=== PATIENT | male | born 1985 | race Caucasian/White ===

== ENCOUNTER 2021-06-23 19:04 | Emergency (ER) | payer MEDICAID ==
[2021-06-23 19:31] VITALS: BP 161/97; PULSE 114
--- NOTE | 2021-06-23 20:24 | EDM.PDOCBH ---
ED HPI GENERAL MEDICAL PROBLEM - General Chief Complaint: Drug or Alcohol Abuse Stated Complaint: ORLY GEORGE Time Seen by Provider: 06/23/21 19:50 Source of Information: Reports: Patient History Limitations: Reports: Intoxication - History of Present Illness INITIAL COMMENTS - FREE TEXT/NARRATIVE: 36-year-old male who has a chronic problem with binge drinking, has been dri nking too much lately and his and [id number] are insisting he go to detox. The patient himself does not seem to be real committed but I do get the feeling he would like some help. He has no nausea or vomiting, he has been drinking daily but does go periods of not drinking fairly often. History of seizures in the past which he was on medication but when he stopped drinking in the past he stopped the medications as well, no seizures since. Onset: Unknown/Unsure Associated Symptoms: Reports: No Other Symptoms - Related Data Allergies Allergy/AdvReac Type Severity Reaction Status Date / Time No Known Allergies Allergy Verified 06/23/21 19:57 Home Meds: Home Meds NK [No Known Home Meds] 06/23/21 [History] Past Medical History Neurological History: Reports: Seizure Psychiatric History: Reports: Addiction, Other (See Below) Other Psychiatric History: ETOH - Infectious Disease History Infectious Disease History: Reports: Chicken Pox Social & Family History - Tobacco Use Tobacco Use Status *Q: Never Tobacco User - Recreational Drug Use Recreational Drug Use: Yes Drug Use in Last 12 Months: Yes Recreational Drug Type: Reports: Marijuana/Hashish ED ROS GENERAL - Review of Systems Review Of Systems: See Below Constitutional: Denies: Fever, Chills HEENT: Reports: No Symptoms Respiratory: Reports: No Symptoms Cardiovascular: Reports: No Symptoms GI/Abdominal: Reports: No Symptoms Musculoskeletal: Reports: No Symptoms Skin: Reports: No Symptoms Neurological: Reports: No Symptoms Psychiatric: Denies: Depression, Suicidal Ideation ED EXAM, BEHAVIORAL HEALTH - Physical Exam Exam: See Below Exam Limited By: Intoxication General Appearance: Alert, No Apparent Distress Eye Exam: Bilateral Eye: Conjunctival Injection Head: Atraumatic Neck: Non-Tender Respiratory/Chest: Lungs Clear Cardiovascular: Regular Rate, Rhythm, Tachycardia (Mild tachycardia) GI/Abdominal: Soft, Non-Tender Extremities: Normal Inspection Neurological: Alert, No Motor/Sensory Deficits Psychiatric: Flat Affect. No: Depressed Mood, Restless, Tearful, Agitated, Disoriented, Inattentive Skin Exam: Warm, Dry COURSE, BEHAVIORAL HEALTH COMP - Course Vital Signs: Last Vital Signs Temp 98.2 F 06/23/21 19:37 Pulse 114 H 06/23/21 19:37 Resp 16 06/23/21 19:37 BP 161/97 H 06/23/21 19:37 Pulse Ox 94 L 06/23/21 19:37 Orders, Labs, Meds: Laboratory Tests 06/23/21 06/23/21 06/23/21 Range/Units 19:31 19:48 19:50 Urine Opiates Screen Negative (NEGATIVE) Ur Oxycodone Screen Negative (NEGATIVE) Urine Methadone Screen Negative (NEGATIVE) Ur Propoxyphene Screen Negative (NEGATIVE) Ur Barbiturates Screen Negative (NEGATIVE) Ur Tricyclics Screen Negative (NEGATIVE) Ur Phencyclidine Scrn Negative (NEGATIVE) Ur Amphetamine Screen Negative (NEGATIVE) U Methamphetamines Scrn Negative (NEGATIVE) Urine MDMA Screen Negative (NEGATIVE) U Benzodiazepines Scrn Negative (NEGATIVE) U Cocaine Metab Screen Negative (NEGATIVE) U Marijuana (THC) Screen Presumptive positive H (NEGATIVE) Ethyl Alcohol 275 mg/dL SARS CoV-2 RNA Rapid ISABELLE Negative Re-Assessment/Re-Exam: Urine drug screen is obtained and was positive only for marijuana. Covid test and EtOH levels are pending. EtOH is 0.275, Covid is negative. 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 Departure - Departure Time of Disposition: 20:46 Disposition: DC/Tfer to Other 70 Clinical Impression: Alcohol abuse - Discharge Information Instructions: Alcohol Intoxication, [id number] Referrals: Eron Kerr MD [Primary Care Provider] - Forms: ED Department Discharge Care Plan Goals: Patient is to be transferred out to [facility] for detox and chemical dependency evaluation. Sepsis Event Note (ED) - Evaluation Sepsis Screening Result: No Definite Risk - Focused Exam Vital Signs: Vital Signs Temp Pulse Resp BP Pulse Ox 06/23/21 19:37 98.2 F 114 H 16 161/97 H 94 L 06/23/21 19:29 98.2 F 114 H 16 161/97 H 94 L
== END 2021-06-23 21:34 | disposition other institution (70) ==
LOC: JP.ED 19:04
DX: F10.10 Alcohol abuse, uncomplicated (principal); R00.0 Tachycardia, unspecified; Y90.8 Blood alcohol level of 240 mg/100 ml or more; Z20.822 Contact with and (suspected) exposure to COVID-19
CPT/HCPCS: 36415; 80305-QW; 80307; 99284; U0002